=== PATIENT | male | born 1960 | race Caucasian/White ===

== ENCOUNTER 2017-12-08 16:48 | Emergency (ER) | payer MEDICAID ==
[~2017-12-08] VITALS: Ht 182.9 cm; Wt 81.8 kg
[2017-12-08 17:42] LABS: BASOPHILS # (AUTO) 0.1 X10'3 (0-0.2); BASOPHILS % (AUTO) 1.6 % (0-1); EOSINOPHILS # (AUTO) 0.1 X10'3 (0-0.9); EOSINOPHILS % (AUTO) 0.7 % (0-6); HEMATOCRIT 37.8 % (42.0-52.0); HEMOGLOBIN 12.9 g/dl (14.0-17.9); LYMPHOCYTES # (AUTO) 2.5 X10'3 (1.1-4.8); LYMPHOCYTES % (AUTO) 27.8 % (21-51); MEAN CORPUSCULAR HEMOGLOBIN 27.7 PG (27.0-31.0); MEAN CORPUSCULAR VOLUME 81.5 FL (78-98); MEAN PLATELET VOLUME 7.1 FL (7.4-10.4); MONOCYTES # (AUTO) 0.7 X10'3 (0-0.9); MONOCYTES % (AUTO) 8.1 % (2-12); NEUTROPHILS # (AUTO) 5.6 X10'3 (1.8-7.7); NEUTROPHILS % (AUTO) 61.8 % (42-75); PLATELET COUNT 329 X10'3 (140-440); RED BLOOD COUNT 4.64 X10'6 (4.70-6.10)
[2017-12-08 17:48] LABS: PARTIAL THROMBOPLASTIN TIME 25 SECONDS (22-32); PROTHROMBIN TIME 10.6 SECONDS (9.0-12.0)
[2017-12-08 17:54] LABS: ALANINE AMINOTRANSFERASE 61 U/L (12-78); ALBUMIN 4.1 G/DL (3.4-5.0); ALBUMIN/GLOBULIN RATIO 1.1 (1.1-1.5); ALKALINE PHOSPHATASE 101 IU/L (46-116); ANION GAP 14 (8-16); ASPARTATE AMINO TRANSFERASE 47 U/L (10-37); BILIRUBIN,TOTAL 0.7 MG/DL (0.1-1.0); BLOOD UREA NITROGEN 27 MG/DL (7-18); BUN/CREATININE RATIO 25.5 (5.4-32.0); CALCIUM 9.6 MG/DL (8.5-10.1); CHLORIDE 105 MMOL/L (99-107); CREATININE 1.06 MG/DL (0.60-1.10); GLUCOSE 103 MG/DL (70-104); POTASSIUM 3.8 MMOL/L (3.5-5.1); SODIUM 141 MMOL/L (135-145); TOTAL CARBON DIOXIDE 21.9 MMOL/L (24-32); TOTAL PROTEIN 7.8 G/DL (6.4-8.2); eGFR 72 ML/MIN
[2017-12-08] MEDS ORDERED: LIDOcaine Viscous 15ml cup PO ONE (18:20)
[2017-12-08] MEDS ORDERED: ondansetron 4 MG/5 ML oral solution 5ml CUP PO ONE (18:20)
[2017-12-08] MEDS ORDERED: mag hydrox/Alum hydrox/simeth 30ml oral suspension PO ONE (18:20)
[2017-12-08 18:28] LABS: D-DIMER 0.92 MG/L FEU (0-0.50)
[2017-12-08] MEDS ORDERED: iohexol 350MG/ML 100ml bottle IV ONE (19:11)
[2017-12-08] MEDS ORDERED: ketorolac tromethamine 15mg/ml inj. IV ONE (21:55)
[2017-12-08 22:51] VITALS: BP 108/71
[2017-12-09] MEDS ORDERED: ONDA4TAB6 PO (21:39)
[2017-12-09] MEDS ORDERED: CLON-529 PO (21:39)
== END 2017-12-08 22:52 | disposition home or self-care (01) ==
LOC: ER 16:49 → EEVIPCON 16:49 → ER 22:52
DX: R07.89 Other chest pain (principal); F19.10 Other psychoactive substance abuse, uncomplicated; R10.84 Generalized abdominal pain; I10 Essential (primary) hypertension; F15.90 Other stimulant use, unspecified, uncomplicated; F11.90 Opioid use, unspecified, uncomplicated; F17.200 Nicotine dependence, unspecified, uncomplicated; Z59.0 Homelessness; Z56.0 Unemployment, unspecified
CPT/HCPCS: 36415; 71045; 71275; 80053; 84484; 85025; 85379; 85610; 85730; 93005; 96374; 99285; J1885; J7030; Q9967

== ENCOUNTER 2017-12-09 15:02 | Emergency (ER) | payer MEDICAID ==
[~2017-12-09] VITALS: Ht 182.9 cm; Wt 74.4 kg
[2017-12-09 15:08] VITALS: BP 136/86
[2017-12-09] MEDS ORDERED: CLON-529 PO (21:39)
[2017-12-09] MEDS ORDERED: ONDA4TAB6 PO (21:39)
== END 2017-12-09 16:54 | disposition home or self-care (01) ==
LOC: ER 15:03
DX: F11.10 Opioid abuse, uncomplicated (principal); F15.10 Other stimulant abuse, uncomplicated; I10 Essential (primary) hypertension; Z88.0 Allergy status to penicillin; Z79.899 Other long term (current) drug therapy; Z59.0 Homelessness; Z56.0 Unemployment, unspecified
CPT/HCPCS: 99281